=== PATIENT | male | born 1940 | race African-American/Black ===

== ENCOUNTER 2018-11-21 17:58 | Observation (INO) ==
[2018-11-21] MEDS ORDERED: ATROPINE 1 MG/10 ML SYRINGE ONE (18:07)
[2018-11-21] MEDS ORDERED: SODIUM CHLORIDE 0.9% 1,000 ML IV STA (18:17)
[2018-11-21] MEDS ORDERED: ATROPINE 1 MG/10 ML SYRINGE IV STA (18:17)
[2018-11-21 19:04] LABS: INR 1.7
[2018-11-21 19:11] LABS: Albumin 3.4 G/DL (3.4-5.0); Bilirubin,Total 0.5 MG/DL (0.2-1.0); Calcium 8.5 MG/DL (8.5-10.1); Osmolality,Calculated 287.1 MOS/KG (273-304)
[2018-11-21 19:14] LABS: Basophils % 0.5 % (0.0-0.8); Eosinophils # 0.4 10*3/uL (0.0-0.87); Eosinophils % 6.3 % (0.00-10.9); Hematocrit 47.1 VOL% (42.0-52.0); Hemoglobin 14.1 GM/DL (14.0-18.0); Immature Granulocytes % 0.2 %; Immature Granulocytes Absolute 0.01 #; Lymphocytes # 1.7 10*3/uL (1.4-4.0); Lymphocytes % 28.1 % (21.2-54.2); Mean Corpuscular HGB Conc 29.9 GM/DL (32-36); Mean Corpuscular Volume 85.9 FL (87-102); Mean Platelet Volume 12.8 FL (9.6-12.0); Neutrophils % 52.9 % (38.7-73.9); Platelet Count 106 T/CUMM (130-400); Red Blood Count 5.48 MC/CUMM (3.8-5.5); Red Cell Distribution Width 15.7 % (9.3-17.3)
[2018-11-21] MEDS ORDERED: MAGNESIUM SULF RIDER 4 GM in PREMIX 1 EACH IV PRN (19:42)
[2018-11-21] MEDS ORDERED: MAGNESIUM SULF RIDER 2 GM in PREMIX 1 EACH IV PRN (19:42)
[2018-11-21] MEDS: SODIUM CHLORIDE 0.9% 1,000 ML IV SCH (20:40)
[2018-11-22 06:50] LABS: Basophils % 0.5 % (0.0-0.8); Eosinophils # 0.2 10*3/uL (0.0-0.87); Eosinophils % 2.8 % (0.00-10.9); Hematocrit 47.8 VOL% (42.0-52.0); Hemoglobin 14.6 GM/DL (14.0-18.0); Immature Granulocytes % 0.3 %; Immature Granulocytes Absolute 0.02 #; Lymphocytes # 1.3 10*3/uL (1.4-4.0); Mean Corpuscular HGB Conc 30.5 GM/DL (32-36); Mean Corpuscular Volume 85.2 FL (87-102); Mean Platelet Volume 13.8 FL (9.6-12.0); Monocytes % 11.1 % (1.7-12.7); Neutrophils % 63.3 % (38.7-73.9); Platelet Count 108 T/CUMM (130-400); Red Blood Count 5.61 MC/CUMM (3.8-5.5); White Blood Count 6.1 T/CUMM (4-12)
[2018-11-22 06:51] LABS: Albumin 3.3 G/DL (3.4-5.0); Bilirubin,Total 0.8 MG/DL (0.2-1.0); Calcium 8.6 MG/DL (8.5-10.1); Osmolality,Calculated 283.1 MOS/KG (273-304); Thyroid Stimulating Hormone 1.34 uIU/ml (0.358-3.74); Total Protein 6.4 G/DL (6.4-8.3)
[2018-11-22] MEDS: SODIUM CHLORIDE 0.9% 1,000 ML IV SCH ×2 (07:03→17:10)
[2018-11-22] MEDS ORDERED: ALBUTEROL 2.5 MG/3 ML NEB RESP TX PRN (13:32)
[2018-11-22] MEDS ORDERED: FLAXSEED OIL 1000 MG PO SCH (13:45)
[2018-11-22] MEDS ORDERED: NF- (Fluticasone Furoate-Vilanterol [Breo Ellipta] 1 PUFF) INH SCH (13:45)
[2018-11-22] MEDS: metFORMIN 500 MG TABLET PO SCH ×2 (16:21→20:34)
[2018-11-22] MEDS: MAGNESIUM OXIDE 400 MG TABLET PO SCH ×2 (16:21→20:33)
[2018-11-22] MEDS: CLOPIDOGREL 75 MG TABLET PO SCH (17:42)
[2018-11-22] MEDS: RIVAROXABAN 20 MG TABLET PO SCH (17:42)
[2018-11-22] MEDS: EZETIMIBE 10 MG TABLET PO SCH (17:42)
[2018-11-22] MEDS: sitaGLIPtin 100 MG TABLET PO SCH (17:42)
[2018-11-22] MEDS ORDERED: PROSTAVAN PO SCH (19:00)
[2018-11-22] MEDS: ROSUVASTATIN 20 MG TABLET PO SCH (20:34)
[2018-11-22] MEDS: DILTIAZEM CD 180 MG CAPSULE PO SCH (20:34)
[2018-11-22] MEDS: BENAZEPRIL 10 MG TABLET PO SCH (20:36)
[2018-11-23] MEDS: SODIUM CHLORIDE 0.9% 1,000 ML IV SCH ×2 (00:08→08:40)
[2018-11-23] MEDS ORDERED: FUROSEMIDE 40 MG/4 ML VIAL IV ONE (08:23)
[2018-11-23] MEDS: EZETIMIBE 10 MG TABLET PO SCH (09:06)
[2018-11-23] MEDS: OMEGA 3 ACID ETHYL ESTERS 1 GM CAPSULE PO SCH (09:06)
[2018-11-23] MEDS: sitaGLIPtin 100 MG TABLET PO SCH (09:06)
[2018-11-23] MEDS: metFORMIN 500 MG TABLET PO SCH ×2 (09:06→20:38)
[2018-11-23] MEDS: CLOPIDOGREL 75 MG TABLET PO SCH (09:06)
[2018-11-23] MEDS: MAGNESIUM OXIDE 400 MG TABLET PO SCH ×2 (09:06→20:38)
[2018-11-23] MEDS: DILTIAZEM CD 180 MG CAPSULE PO SCH ×2 (09:06→20:38)
[2018-11-23] MEDS: CHOLECALCIFEROL 5,000 UNIT TABLET PO SCH (09:06)
[2018-11-23] MEDS: ALBUTEROL/IPRATROPIUM 3 ML NEB RESP TX SCH ×3 (11:00→20:45)
[2018-11-23] MEDS: INSULIN LISPRO 100 UNIT/ML SUBCUT SCH ×2 (16:11→20:39)
[2018-11-23] MEDS: FUROSEMIDE 40 MG/4 ML VIAL IV SCH (16:12)
[2018-11-23] MEDS: RIVAROXABAN 20 MG TABLET PO SCH (16:12)
[2018-11-23] MEDS ORDERED: MAGNESIUM HYDROXIDE SUSP 30 ML UDCUP PO PRN (16:41)
[2018-11-23] MEDS ORDERED: diphenhydrAMINE CAP 25 MG CAPSULE PO PRN (16:41)
[2018-11-23] MEDS: ROSUVASTATIN 20 MG TABLET PO SCH (18:25)
[2018-11-23] MEDS: BENAZEPRIL 10 MG TABLET PO SCH (20:37)
[2018-11-24] MEDS: ALBUTEROL/IPRATROPIUM 3 ML NEB RESP TX SCH ×4 (00:21→11:00)
[2018-11-24 08:10] LABS: Calcium 9.2 MG/DL (8.5-10.1); Osmolality,Calculated 278.4 MOS/KG (273-304)
[2018-11-24 08:31] VITALS: BP 143/85
[2018-11-24] MEDS: sitaGLIPtin 100 MG TABLET PO SCH (09:04)
[2018-11-24] MEDS: MAGNESIUM OXIDE 400 MG TABLET PO SCH (09:04)
[2018-11-24] MEDS: OMEGA 3 ACID ETHYL ESTERS 1 GM CAPSULE PO SCH (09:04)
[2018-11-24] MEDS: EZETIMIBE 10 MG TABLET PO SCH (09:04)
[2018-11-24] MEDS: CLOPIDOGREL 75 MG TABLET PO SCH (09:04)
[2018-11-24] MEDS: DILTIAZEM CD 180 MG CAPSULE PO SCH (09:04)
[2018-11-24] MEDS: INSULIN LISPRO 100 UNIT/ML SUBCUT SCH (09:05)
[2018-11-24] MEDS: metFORMIN 500 MG TABLET PO SCH (09:05)
[2018-11-24] MEDS: CHOLECALCIFEROL 5,000 UNIT TABLET PO SCH (09:05)
[2018-11-24] MEDS: FUROSEMIDE 40 MG/4 ML VIAL IV SCH (09:21)
== END 2018-11-24 11:59 | disposition home or self-care (01) ==
LOC: EDBD → EDUNIT# → N.EDINP 17:58 → N.ED 17:58 → N.TELES 20:07
PROVIDERS: ADMIT Internal Medicine Cardiovascular Disease; ATTEND Internal Medicine Cardiovascular Disease